=== PATIENT | female | born 1945 | race Two or more races ===

== ENCOUNTER 2020-10-06 18:02 | Emergency (ER) | payer OTHER ==
[~2020-10-06] VITALS: Ht 157.5 cm; Wt 45.8 kg
[~2020-10-06 18:02] MED LIST: ADEMPAS2 MG PO; COUMADIN5 MG PO; PREDNISOL5 ML OP; PREVACID30 MG PO; PROCARDIA90 MG/BLIS PO; TESSALON PERLE100 MG PO; TUSSI PRES-B L120 M1 PO; [UNRECOGNIZED DRUG - OTHER]
[2020-10-06] MEDS ORDERED: UPTRAVI800 MCG (18:13)
[2020-10-06] MEDS ORDERED: LYRICA100 MG (18:13)
[2020-10-06] MEDS ORDERED: PAXIL20 MG (18:13)
[2020-10-06] MEDS ORDERED: PEPCID AC10 MG (18:14)
[2020-10-07] MEDS ORDERED: INTESTINEX680 M2 PO (03:26)
[2020-10-07] MEDS ORDERED: LEVSIN0.125 MG PO (03:26)
[2020-10-07] MEDS ORDERED: ULTRACET PO (03:26)
[2020-10-07] MEDS ORDERED: PEPCID AC20 MG PO (03:26)
[2020-10-07] MEDS ORDERED: CIPROFLOXACIN500 MG PO (03:26)
== END 2020-10-07 03:56 | disposition home or self-care (01) ==
LOC: ER 18:02
DX: R19.7 Diarrhea, unspecified (principal); R10.84 Generalized abdominal pain; R16.1 Splenomegaly, not elsewhere classified; K76.0 Fatty (change of) liver, not elsewhere classified; I88.0 Nonspecific mesenteric lymphadenitis

== ENCOUNTER 2024-07-14 12:28 | Emergency (ER) | payer OTHER ==
[~2024-07-14] VITALS: Ht 157.5 cm; Wt 49.9 kg
[~2024-07-14 12:28] MED LIST changes: +CIPROFLOXACIN500 MG PO; +INTESTINEX680 M2 PO; +LEVSIN0.125 MG PO; +LYRICA100 MG; +PAXIL20 MG; +PEPCID AC10 MG; +PEPCID AC20 MG PO; +ULTRACET PO; +UPTRAVI800 MCG
[2024-07-14] MEDS ORDERED: ORENITRAM PO (13:12)
[2024-07-14] MEDS ORDERED: [UNRECOGNIZED DRUG - OTHER] SUBCUTANEO (13:13)
[2024-07-14] MEDS ORDERED: KETOROLAC TROMETHAMINE 60 MG VIAL IM ONE ×2 (14:00→14:01)
== END 2024-07-14 16:19 | disposition home or self-care (01) ==
LOC: ER 12:30
DX: M54.10 Radiculopathy, site unspecified (principal); Z91.013 Allergy to seafood
CPT/HCPCS: 72131; 96372; 99284; J1885